=== PATIENT | female | born 1995 | race African-American/Black ===

== ENCOUNTER 2024-03-22 19:02 | Emergency (ER) | payer OTHER ==
[~2024-03-22] VITALS: Ht 160 cm; Wt 149.7 kg
[2024-03-22 19:10] VITALS: BP 138/76; PULSE 70; RESP 18; TEMP 98.3; O2SAT 98
[2024-03-22 19:33] VITALS: BP 138/76; PULSE 70; RESP 18; TEMP 98.3; O2SAT 98
[2024-03-22 19:53] LABS: BILIRUBIN,URINE NEGATIVE (NEGATIVE); BLOOD, URINE 3+ (NEGATIVE); COLOR,URINE YELLOW (YELLOW); LEUKOCYTE ESTERASE ,URINE NEGATIVE (NEGATIVE); NITRITE, URINE NEGATIVE (NEGATIVE); PH,URINE 6.5 (5.0-9.0); PROTEIN,URINE NEGATIVE (NEGATIVE); UGLUCOSE NEGATIVE (NEGATIVE); UROBILINOGEN,URINE 0.2 EU/dL (0.2 - 1)
[2024-03-22 19:54] LABS: APPEARANCE,URINE SLIGHTLY CLOUDY (CLEAR)
[2024-03-22 20:14] LABS: BACTERIA,URINE 10-30 (MOD) /HPF (None Seen); MUCUS,URINE 1+ /LPF (None Seen); SQUAMOUS EPITHELIAL CELL,UR 4-10 (MOD) /LPF (0-3 (FEW)); WBC,URINE 0-5 /HPF (0-5)
[2024-03-22] MEDS ORDERED: ACET-8905 PO (20:36)
[2024-03-22] MEDS ORDERED: IBUP-2213 PO (20:36)
[2024-03-22] MEDS: KETOROLAC 60 MG/2 ML VIAL IM ONE (20:56)
[2024-03-22] MEDS: ACETAMINOPHEN EXTRA STRENGTH 500 MG TAB PO ONE (21:04)
== END 2024-03-22 21:12 | disposition home or self-care (01) ==
LOC: MED 19:02
DX: R10.30 Lower abdominal pain, unspecified (principal); R51.9 Headache, unspecified; N93.9 Abnormal uterine and vaginal bleeding, unspecified; R42 Dizziness and giddiness; R03.0 Elevated blood-pressure reading, without diagnosis of hypertension
CPT/HCPCS: 81001; 81025; 87086; 99283; J1885

== ENCOUNTER 2024-04-25 18:37 | Emergency (ER) | payer OTHER ==
[~2024-04-25] VITALS: Ht 160 cm; Wt 145.1 kg
[~2024-04-25 18:37] MED LIST: ACET-8905 PO; IBUP-2213 PO
[2024-04-25 18:49] VITALS: BP 125/77; PULSE 87; RESP 18; TEMP 98.9; O2SAT 97
[2024-04-25] MEDS ORDERED: DOXY-690 PO (19:40)
[2024-04-25] MEDS ORDERED: CEPH-588 PO (19:42)
[2024-04-25] MEDS ORDERED: cefTRIAXone 500 MG VIAL ONE (19:54)
[2024-04-25] MEDS ORDERED: LIDOCAINE MPF 1% 5 ML ONE (19:54)
[2024-04-25] MEDS: cefTRIAXone 500 MG in LIDOCAINE MPF 1% 1 ML IM ONE (20:01)
[2024-04-25 20:44] LABS: BILIRUBIN,URINE 1+ (NEGATIVE); BLOOD, URINE NEGATIVE (NEGATIVE); COLOR,URINE YELLOW (YELLOW); LEUKOCYTE ESTERASE ,URINE 2+ (NEGATIVE); NITRITE, URINE NEGATIVE (NEGATIVE); PROTEIN,URINE TRACE (NEGATIVE); UGLUCOSE NEGATIVE (NEGATIVE); UROBILINOGEN,URINE 0.2 EU/dL (0.2 - 1)
[2024-04-25 20:45] LABS: APPEARANCE,URINE SLIGHTLY CLOUDY (CLEAR)
[2024-04-25 20:53] LABS: ICTOTEST POSITIVE (NEGATIVE)
[2024-04-25 20:54] LABS: RBC,URINE 0-5 /HPF (0-5)
[2024-04-25 20:55] LABS: BACTERIA,URINE 1+ /HPF (None Seen); SQUAMOUS EPITHELIAL CELL,UR 0-3 (FEW) /LPF (0-3 (FEW))
== END 2024-04-25 20:01 | disposition home or self-care (01) ==
LOC: MED 18:37
DX: Z20.2 Contact with and (suspected) exposure to infections with a predominantly sexual mode of transmission (principal); R30.0 Dysuria; N89.8 Other specified noninflammatory disorders of vagina; Z79.899 Other long term (current) drug therapy
CPT/HCPCS: 81001; 81025; 87086; 87491; 96372; 99283; J0696; J2001